=== PATIENT | female | born 1935 | race African-American/Black ===

== ENCOUNTER 2023-01-29 14:25 | Inpatient (IN) | payer MEDICARE, OTHER ==
[~2023-01-29] VITALS: Ht 162.6 cm; Wt 47.2 kg
[2023-01-29 15:14] LABS: BASOPHILS % (AUTO) 0.6 % (0.0-2.0); EOSINOPHILS % (AUTO) 0.2 % (0.0-7.0); HEMATOCRIT 34.1 % (31.2-41.9); HEMOGLOBIN 11.2 g/dL (10.9-14.3); LYMPHOCYTES # (AUTO) 0.9 K/uL (0.8-4.8); LYMPHOCYTES % (AUTO) 10.8 % (20.5-51.5); MEAN CORPUSCULAR HEMOGLOBIN 30.3 uug (24.7-32.8); MEAN CORPUSCULAR HGB CONC 33 g/dL (32.3-35.6); MEAN CORPUSCULAR VOLUME 91.8 fL (75.5-95.3); MONOCYTES % (AUTO) 11.9 % (0.0-11.0); NEUTROPHILS # (AUTO) 6.6 K/uL (1.8-8.9); NEUTROPHILS % (AUTO) 76.5 % (38.5-71.5); PLATELET COUNT (AUTO) 405 K/uL (179-408); RED BLOOD CELL COUNT(AUTO) 3.72 MIL/uL (3.63-4.92); RED CELL DISTRIBUTION WIDTH 13.2 % (12.3-17.7); WHITE BLOOD COUNT (AUTO) 8.6 K/uL (3.8-11.8)
[2023-01-29] MEDS ORDERED: CLINDAMYCIN (15:25)
[2023-01-29] MEDS ORDERED: PLAVIX (15:25)
[2023-01-29] MEDS ORDERED: ZOFRAN (15:25)
[2023-01-29] MEDS ORDERED: MECLIZINE (15:25)
[2023-01-29] MEDS ORDERED: BENAZEPRIL (15:25)
[2023-01-29 15:27] LABS: CALCIUM 9.6 mg/dL (8.5-10.1); CARBON DIOXIDE 28 mmol/L (21-32); CHLORIDE 93 mmol/L (98-107); CREATININE 0.7 mg/dL (0.6-1.3); GLUCOSE 142 mg/dL (74-106); POTASSIUM 3.8 mmol/L (3.5-5.1); SODIUM SERUM 131 mmol/L (136-145); UREA NITROGEN, BLOOD 14 mg/dL (7-18)
[2023-01-29 15:29] LABS: DIFFERENTIAL COMMENT 1
[2023-01-29 15:36] LABS: ALANINE AMINOTRANSFERASE 36 U/L (14-59); ALKALINE PHOSPHATASE 120 U/L (50-136); ASPARTATE AMINOTRANSFERASE 30 U/L (15-37); BILIRUBIN,DIRECT 0.1 mg/dL (0.0-0.2); BILIRUBIN,TOTAL 0.4 mg/dL (0.2-1.0); TOTAL PROTEIN, SERUM 7.4 g/dL (6.4-8.2)
[2023-01-29 15:41] LABS: THYROID STIMULATING HORMONE 1.631 mIU/mL (0.358-3.740)
[2023-01-29 16:18] LABS: *OCCULT BLOOD STOOL NEGATIVE (NEGATIVE)
[2023-01-29 17:38] LABS: *BILIRUBIN,URIN NEGATIVE (NEGATIVE); *BLOOD, URINE NEGATIVE (NEGATIVE); *CLARITY,URINE CLEAR (CLEAR); *COLOR,URINE YELLOW (YELLOW); *KETONES,URINE NEGATIVE (NEGATIVE); *PROTEIN,URINE 1+ (NEGATIVE); LEUKOCYTE ESTERASE ,URINE NEGATIVE (NEGATIVE); NITRITE, URINE NEGATIVE (NEGATIVE); UGLUCOSE NEGATIVE (NEGATIVE)
[2023-01-29] MEDS ORDERED: MORPHINE SULFATE 2 MG/1 ML DISP.SYRIN IV PRN (18:30)
[2023-01-29] MEDS ORDERED: ONDANSETRON 4 MG/2 ML VIAL IV PRN (18:30)
[2023-01-29] MEDS ORDERED: ACETAMINOPHEN 325 MG TABLET PO PRN (18:30)
[2023-01-29 20:31] VITALS: BP 173/72; TEMP 98.2; O2SAT 97
[2023-01-29] MEDS: ENOXAPARIN SODIUM 40 MG/0.4 ML DISP.SYRIN SQ SCH (20:42)
[2023-01-29] MEDS: REMEDY ESSENTIAL ZINC PASTE 113 GM TOP SCH (20:43)
[2023-01-29 23:20] LABS: BACTERIA,URINE FEW /HPF (NONE SEEN); RBC,URINE 0-3 /HPF (0-3); SQUAMOUS EPITHELIAL CELL,UR FEW /HPF (NONE SEEN); URINE AMORPHOUS URATE MODERATE /HPF; WBC,URINE NONE SEEN /HPF (0-3)
[2023-01-30 00:32] VITALS: BP 162/81; TEMP 98.1; O2SAT 99
[2023-01-30] MEDS: ENALAPRILAT DIHYDRATE 1.25 MG/1 ML VIAL IV PRN (06:01)
[2023-01-30 06:32] VITALS: BP 156/84
[2023-01-30 07:21] LABS: BASOPHILS % (AUTO) 0.3 % (0.0-2.0); EOSINOPHILS % (AUTO) 0.2 % (0.0-7.0); HEMOGLOBIN 11.3 g/dL (10.9-14.3); LYMPHOCYTES % (AUTO) 10.8 % (20.5-51.5); MEAN CORPUSCULAR HEMOGLOBIN 31.1 uug (24.7-32.8); MEAN CORPUSCULAR HGB CONC 34 g/dL (32.3-35.6); MEAN CORPUSCULAR VOLUME 90.6 fL (75.5-95.3); MONOCYTES % (AUTO) 10.6 % (0.0-11.0); NEUTROPHILS # (AUTO) 7.4 K/uL (1.8-8.9); NEUTROPHILS % (AUTO) 78.1 % (38.5-71.5); PLATELET COUNT (AUTO) 423 K/uL (179-408); RED BLOOD CELL COUNT(AUTO) 3.64 MIL/uL (3.63-4.92); RED CELL DISTRIBUTION WIDTH 13.2 % (12.3-17.7); WHITE BLOOD COUNT (AUTO) 9.5 K/uL (3.8-11.8)
[2023-01-30 07:39] LABS: DIFFERENTIAL COMMENT 1
[2023-01-30 08:17] LABS: ALANINE AMINOTRANSFERASE 61 U/L (14-59); ALBUMIN 3.1 g/dL (3.4-5.0); ALKALINE PHOSPHATASE 129 U/L (50-136); ASPARTATE AMINOTRANSFERASE 51 U/L (15-37); BILIRUBIN,TOTAL 0.5 mg/dL (0.2-1.0); CALCIUM 9.6 mg/dL (8.5-10.1); CARBON DIOXIDE 28 mmol/L (21-32); CHLORIDE 95 mmol/L (98-107); CHOLESTEROL 186 mg/dL (<200); CREATININE 0.7 mg/dL (0.6-1.3); FERRITIN 1544 ng/mL (8-252); GLUCOSE 109 mg/dL (74-106); HDL CHOLESTEROL 63 mg/dL (40-60); MAGNESIUM 2.1 mg/dL (1.8-2.4); POTASSIUM 3.4 mmol/L (3.5-5.1); SODIUM SERUM 132 mmol/L (136-145); TOTAL PROTEIN, SERUM 7.4 g/dL (6.4-8.2); TRIGLYCERIDES 97 MG/DL (30-150); UREA NITROGEN, BLOOD 13 mg/dL (7-18)
[2023-01-30] MEDS: CHOLECALCIFEROL 1,000 UNIT TABLET PO SCH (08:50)
[2023-01-30] MEDS: PANTOPRAZOLE SODIUM 40 MG VIAL IV SCH (08:50)
[2023-01-30] MEDS: ASCORBIC ACID 500 MG TABLET PO SCH (08:51)
[2023-01-30] MEDS: REMEDY ESSENTIAL ZINC PASTE 113 GM TOP SCH ×2 (08:51→21:13)
[2023-01-30] MEDS ORDERED: POTASSIUM CHLORIDE 10 MEQ TAB.PRT.SR PO SCH (11:00)
[2023-01-30 12:00] VITALS: BP 165/77; TEMP 98.1; O2SAT 100
[2023-01-30] MEDS ORDERED: BENAZEPRIL HCL 10 MG TABLET PO SCH (12:00)
[2023-01-30 13:47] LABS: THYROID STIMULATING HORMONE 1.433 mIU/mL (0.358-3.740)
[2023-01-30 15:52] LABS: HIV-1 p24 ANTIGEN NON REACTIVE (NONREACTIVE); HIV-1/2 ANTIBODY NON REACTIVE (NONREACTIVE)
[2023-01-30 16:00] VITALS: BP 156/82; TEMP 98; O2SAT 99
[2023-01-30] MEDS ORDERED: REMDESIVIR (CHARGED) 200 MG in IV NORMAL SALINE 210 ML IV ONE (16:00)
[2023-01-30 20:45] VITALS: BP 128/63; TEMP 99.1; O2SAT 98
[2023-01-30] MEDS: METOPROLOL TARTRATE 25 MG TABLET PO SCH (21:12)
[2023-01-30] MEDS: ENOXAPARIN SODIUM 40 MG/0.4 ML DISP.SYRIN SQ SCH (21:13)
[2023-01-31 00:30] VITALS: BP 156/73; TEMP 100.6; O2SAT 97
[2023-01-31] MEDS: ENALAPRILAT DIHYDRATE 1.25 MG/1 ML VIAL IV PRN (04:00)
[2023-01-31 04:12] VITALS: BP 152/60; TEMP 99.5; O2SAT 99
[2023-01-31] MEDS: METOPROLOL TARTRATE 25 MG TABLET PO SCH ×2 (06:48→21:22)
[2023-01-31 07:28] LABS: BASOPHILS % (AUTO) 0.3 % (0.0-2.0); EOSINOPHILS % (AUTO) 0.2 % (0.0-7.0); HEMATOCRIT 29.1 % (31.2-41.9); HEMOGLOBIN 9.9 g/dL (10.9-14.3); LYMPHOCYTES # (AUTO) 1.2 K/uL (0.8-4.8); MEAN CORPUSCULAR HEMOGLOBIN 30.9 uug (24.7-32.8); MEAN CORPUSCULAR HGB CONC 34 g/dL (32.3-35.6); MEAN CORPUSCULAR VOLUME 90.6 fL (75.5-95.3); MONOCYTES # (AUTO) 1.2 K/uL (0.1-1.30); MONOCYTES % (AUTO) 11.5 % (0.0-11.0); NEUTROPHILS # (AUTO) 8.1 K/uL (1.8-8.9); PLATELET COUNT (AUTO) 406 K/uL (179-408); RED BLOOD CELL COUNT(AUTO) 3.21 MIL/uL (3.63-4.92); RED CELL DISTRIBUTION WIDTH 13.2 % (12.3-17.7); WHITE BLOOD COUNT (AUTO) 10.5 K/uL (3.8-11.8)
[2023-01-31 07:38] LABS: DIFFERENTIAL COMMENT 1
[2023-01-31 07:42] LABS: CALCIUM 9.2 mg/dL (8.5-10.1); CARBON DIOXIDE 27 mmol/L (21-32); CHLORIDE 94 mmol/L (98-107); CREATININE 0.7 mg/dL (0.6-1.3); GLUCOSE 109 mg/dL (74-106); PHOSPHOROUS 2.8 mg/dL (2.5-4.9); POTASSIUM 3.4 mmol/L (3.5-5.1); SODIUM SERUM 129 mmol/L (136-145); UREA NITROGEN, BLOOD 15 mg/dL (7-18)
[2023-01-31] MEDS: PANTOPRAZOLE SODIUM 40 MG VIAL IV SCH (09:07)
[2023-01-31] MEDS: ASCORBIC ACID 500 MG TABLET PO SCH (09:07)
[2023-01-31] MEDS: CHOLECALCIFEROL 1,000 UNIT TABLET PO SCH (09:07)
[2023-01-31] MEDS: REMEDY ESSENTIAL ZINC PASTE 113 GM TOP SCH ×2 (09:08→21:29)
[2023-01-31] MEDS ORDERED: BENAZEPRIL HCL 10 MG TABLET PO ONE (09:45)
[2023-01-31] MEDS ORDERED: BENA20TA9 PO (10:17)
[2023-01-31] MEDS ORDERED: CLOP75TA15 PO (10:17)
[2023-01-31] MEDS ORDERED: MECL-159 PO (10:17)
[2023-01-31] MEDS ORDERED: ONDA4TAB5 PO (10:17)
[2023-01-31] MEDS ORDERED: POTASSIUM CHLORIDE 20 MEQ TAB.PRT.SR PO ONE (11:00)
[2023-01-31 11:35] VITALS: BP 157/75; TEMP 98.4; O2SAT 96
[2023-01-31] MEDS: REMDESIVIR (CHARGED) 100 MG in IV NORMAL SALINE 100 ML IV SCH (16:05)
[2023-01-31] MEDS: ENSURE ENLIVE (VAN) 240 ML LIQUID PO SCH (16:05)
[2023-01-31 16:30] VITALS: BP 136/70; O2SAT 99
[2023-01-31 18:03] VITALS: BP 147/62; O2SAT 100
[2023-01-31 21:21] VITALS: BP 136/60; TEMP 99; O2SAT 92
[2023-01-31] MEDS: ENOXAPARIN SODIUM 40 MG/0.4 ML DISP.SYRIN SQ SCH (21:22)
[2023-02-01 00:51] VITALS: BP 120/60; TEMP 99; O2SAT 89
[2023-02-01] MEDS: PANTOPRAZOLE SODIUM 40 MG TABLET.DR PO SCH (06:23)
[2023-02-01 06:45] LABS: BASOPHILS # (AUTO) 0.1 K/UL (0.0-0.2); BASOPHILS % (AUTO) 0.6 % (0.0-2.0); EOSINOPHILS # (AUTO) 0.1 K/uL (0.0-0.7); EOSINOPHILS % (AUTO) 0.6 % (0.0-7.0); HEMATOCRIT 30.2 % (31.2-41.9); HEMOGLOBIN 10.1 g/dL (10.9-14.3); LYMPHOCYTES # (AUTO) 1.2 K/uL (0.8-4.8); LYMPHOCYTES % (AUTO) 14.3 % (20.5-51.5); MEAN CORPUSCULAR HEMOGLOBIN 30.9 uug (24.7-32.8); MEAN CORPUSCULAR HGB CONC 33 g/dL (32.3-35.6); MEAN CORPUSCULAR VOLUME 92.6 fL (75.5-95.3); MONOCYTES # (AUTO) 0.8 K/uL (0.1-1.30); MONOCYTES % (AUTO) 9.3 % (0.0-11.0); NEUTROPHILS # (AUTO) 6.5 K/uL (1.8-8.9); NEUTROPHILS % (AUTO) 75.2 % (38.5-71.5); PLATELET COUNT (AUTO) 430 K/uL (179-408); RED BLOOD CELL COUNT(AUTO) 3.26 MIL/uL (3.63-4.92); RED CELL DISTRIBUTION WIDTH 13.5 % (12.3-17.7); WHITE BLOOD COUNT (AUTO) 8.6 K/uL (3.8-11.8)
[2023-02-01 07:13] LABS: DIFFERENTIAL COMMENT 1
[2023-02-01 07:35] LABS: ALANINE AMINOTRANSFERASE 47 U/L (14-59); ALBUMIN 2.4 g/dL (3.4-5.0); ALKALINE PHOSPHATASE 105 U/L (50-136); ASPARTATE AMINOTRANSFERASE 31 U/L (15-37); BILIRUBIN,DIRECT 0.1 mg/dL (0.0-0.2); BILIRUBIN,TOTAL 0.2 mg/dL (0.2-1.0); CALCIUM 9.3 mg/dL (8.5-10.1); CARBON DIOXIDE 29 mmol/L (21-32); CHLORIDE 98 mmol/L (98-107); CREATININE 0.7 mg/dL (0.6-1.3); FERRITIN 947 ng/mL (8-252); GLUCOSE 99 mg/dL (74-106); MAGNESIUM 2.2 mg/dL (1.8-2.4); PHOSPHOROUS 3.3 mg/dL (2.5-4.9); POTASSIUM 3.7 mmol/L (3.5-5.1); SODIUM SERUM 133 mmol/L (136-145); TOTAL PROTEIN, SERUM 6.2 g/dL (6.4-8.2); UREA NITROGEN, BLOOD 23 mg/dL (7-18)
[2023-02-01] MEDS: ASCORBIC ACID 500 MG TABLET PO SCH (09:16)
[2023-02-01] MEDS: CHOLECALCIFEROL 1,000 UNIT TABLET PO SCH (09:16)
[2023-02-01] MEDS: ENSURE ENLIVE (VAN) 240 ML LIQUID PO SCH ×2 (09:17→15:46)
[2023-02-01] MEDS: BENAZEPRIL HCL 20 MG TABLET PO SCH (09:17)
[2023-02-01] MEDS: REMEDY ESSENTIAL ZINC PASTE 113 GM TOP SCH ×2 (09:17→21:36)
[2023-02-01] MEDS: METOPROLOL TARTRATE 25 MG TABLET PO SCH ×2 (09:18→21:35)
[2023-02-01 11:59] VITALS: BP 108/58; TEMP 98.9; O2SAT 99
[2023-02-01] MEDS: REMDESIVIR (CHARGED) 100 MG in IV NORMAL SALINE 100 ML IV SCH (15:46)
[2023-02-01 16:00] VITALS: BP 88/38; TEMP 97.1; O2SAT 93
[2023-02-01 16:17] VITALS: BP 107/41; TEMP 98.2; O2SAT 96
[2023-02-01 20:19] VITALS: BP 116/60; TEMP 98.8; O2SAT 90
[2023-02-01] MEDS: ENOXAPARIN SODIUM 40 MG/0.4 ML DISP.SYRIN SQ SCH (21:36)
[2023-02-02 05:15] VITALS: BP 120/60; TEMP 99; O2SAT 98
[2023-02-02] MEDS: PANTOPRAZOLE SODIUM 40 MG TABLET.DR PO SCH (06:43)
[2023-02-02 07:05] LABS: BASOPHILS # (AUTO) 0.1 K/UL (0.0-0.2); BASOPHILS % (AUTO) 0.7 % (0.0-2.0); EOSINOPHILS % (AUTO) 0.4 % (0.0-7.0); HEMATOCRIT 28.2 % (31.2-41.9); HEMOGLOBIN 9.6 g/dL (10.9-14.3); LYMPHOCYTES # (AUTO) 1.1 K/uL (0.8-4.8); LYMPHOCYTES % (AUTO) 14.8 % (20.5-51.5); MEAN CORPUSCULAR HEMOGLOBIN 30.9 uug (24.7-32.8); MEAN CORPUSCULAR HGB CONC 34 g/dL (32.3-35.6); MEAN CORPUSCULAR VOLUME 90.5 fL (75.5-95.3); MONOCYTES # (AUTO) 0.7 K/uL (0.1-1.30); NEUTROPHILS # (AUTO) 5.8 K/uL (1.8-8.9); NEUTROPHILS % (AUTO) 75.1 % (38.5-71.5); PLATELET COUNT (AUTO) 404 K/uL (179-408); RED BLOOD CELL COUNT(AUTO) 3.11 MIL/uL (3.63-4.92); RED CELL DISTRIBUTION WIDTH 13.5 % (12.3-17.7); WHITE BLOOD COUNT (AUTO) 7.7 K/uL (3.8-11.8)
[2023-02-02 07:18] LABS: DIFFERENTIAL COMMENT 1
[2023-02-02 07:33] LABS: ALANINE AMINOTRANSFERASE 42 U/L (14-59); ALBUMIN 2.3 g/dL (3.4-5.0); ALKALINE PHOSPHATASE 102 U/L (50-136); ASPARTATE AMINOTRANSFERASE 17 U/L (15-37); BILIRUBIN,DIRECT 0.1 mg/dL (0.0-0.2); BILIRUBIN,TOTAL 0.3 mg/dL (0.2-1.0); CALCIUM 9.3 mg/dL (8.5-10.1); CARBON DIOXIDE 27 mmol/L (21-32); CHLORIDE 98 mmol/L (98-107); CREATININE 0.7 mg/dL (0.6-1.3); GLUCOSE 96 mg/dL (74-106); POTASSIUM 3.9 mmol/L (3.5-5.1); SODIUM SERUM 133 mmol/L (136-145); TOTAL PROTEIN, SERUM 5.9 g/dL (6.4-8.2); UREA NITROGEN, BLOOD 34 mg/dL (7-18)
[2023-02-02] MEDS: ENSURE ENLIVE (VAN) 240 ML LIQUID PO SCH ×2 (08:12→17:04)
[2023-02-02] MEDS: CHOLECALCIFEROL 1,000 UNIT TABLET PO SCH (09:10)
[2023-02-02] MEDS: ASCORBIC ACID 500 MG TABLET PO SCH (09:11)
[2023-02-02] MEDS: REMEDY ESSENTIAL ZINC PASTE 113 GM TOP SCH ×2 (09:11→20:36)
[2023-02-02] MEDS: BENAZEPRIL HCL 20 MG TABLET PO SCH (09:39)
[2023-02-02] MEDS: METOPROLOL TARTRATE 25 MG TABLET PO SCH ×2 (09:40→20:35)
[2023-02-02 11:41] VITALS: BP 129/47; TEMP 98.3; O2SAT 98
[2023-02-02 16:00] VITALS: BP 102/54; TEMP 98.4; O2SAT 98
[2023-02-02 20:00] VITALS: BP 107/55; TEMP 98.2; O2SAT 96
[2023-02-02] MEDS: ENOXAPARIN SODIUM 40 MG/0.4 ML DISP.SYRIN SQ SCH (20:06)
[2023-02-03 06:13] VITALS: BP 128/62; TEMP 99
[2023-02-03] MEDS: PANTOPRAZOLE SODIUM 40 MG TABLET.DR PO SCH (06:20)
[2023-02-03 06:54] LABS: ALBUMIN 2.4 g/dL (3.4-5.0); BASOPHILS % (AUTO) 0.5 % (0.0-2.0); BILIRUBIN,DIRECT 0.1 mg/dL (0.0-0.2); BILIRUBIN,TOTAL 0.3 mg/dL (0.2-1.0); CREATININE 0.8 mg/dL (0.6-1.3); DIFFERENTIAL COMMENT 0; EOSINOPHILS % (AUTO) 0.3 % (0.0-7.0); HEMATOCRIT 28.4 % (31.2-41.9); HEMOGLOBIN 9.6 g/dL (10.9-14.3); LYMPHOCYTES # (AUTO) 1.1 K/uL (0.8-4.8); LYMPHOCYTES % (AUTO) 11.8 % (20.5-51.5); MEAN CORPUSCULAR HEMOGLOBIN 30.8 uug (24.7-32.8); MEAN CORPUSCULAR HGB CONC 34 g/dL (32.3-35.6); MONOCYTES # (AUTO) 0.7 K/uL (0.1-1.30); MONOCYTES % (AUTO) 8.3 % (0.0-11.0); NEUTROPHILS # (AUTO) 7.1 K/uL (1.8-8.9); NEUTROPHILS % (AUTO) 79.1 % (38.5-71.5); PLATELET COUNT (AUTO) 426 K/uL (179-408); POTASSIUM 4.4 mmol/L (3.5-5.1); RED BLOOD CELL COUNT(AUTO) 3.12 MIL/uL (3.63-4.92); RED CELL DISTRIBUTION WIDTH 13.5 % (12.3-17.7)
[2023-02-03 07:07] LABS: CALCIUM 9.3 mg/dL (8.5-10.1)
[2023-02-03] MEDS: ENSURE ENLIVE (VAN) 240 ML LIQUID PO SCH ×2 (08:07→17:08)
[2023-02-03] MEDS: METOPROLOL TARTRATE 25 MG TABLET PO SCH ×2 (08:40→21:06)
[2023-02-03] MEDS: BENAZEPRIL HCL 20 MG TABLET PO SCH (08:40)
[2023-02-03] MEDS: REMEDY ESSENTIAL ZINC PASTE 113 GM TOP SCH ×2 (08:40→21:07)
[2023-02-03] MEDS: CHOLECALCIFEROL 1,000 UNIT TABLET PO SCH (08:40)
[2023-02-03] MEDS: ASCORBIC ACID 500 MG TABLET PO SCH (08:40)
[2023-02-03 11:14] VITALS: BP 139/62; TEMP 98.6; O2SAT 99
[2023-02-03 15:13] VITALS: BP 137/72; TEMP 97.7; O2SAT 99
[2023-02-03 20:00] VITALS: BP 117/54; TEMP 97.3; O2SAT 99
[2023-02-03] MEDS: ENOXAPARIN SODIUM 40 MG/0.4 ML DISP.SYRIN SQ SCH (21:10)
[2023-02-04] VITALS: BP 102/57; TEMP 98.3; O2SAT 96
[2023-02-04 04:00] VITALS: BP 150/70; TEMP 97.9; O2SAT 98
[2023-02-04] MEDS: PANTOPRAZOLE SODIUM 40 MG TABLET.DR PO SCH (06:04)
[2023-02-04] MEDS: BENAZEPRIL HCL 20 MG TABLET PO SCH (07:50)
[2023-02-04] MEDS: METOPROLOL TARTRATE 25 MG TABLET PO SCH (07:51)
[2023-02-04] MEDS: CHOLECALCIFEROL 1,000 UNIT TABLET PO SCH (07:51)
[2023-02-04] MEDS: ASCORBIC ACID 500 MG TABLET PO SCH (07:51)
[2023-02-04] MEDS: REMEDY ESSENTIAL ZINC PASTE 113 GM TOP SCH (08:45)
[2023-02-04] MEDS: ENSURE ENLIVE (VAN) 240 ML LIQUID PO SCH (08:45)
[2023-02-04 12:00] VITALS: BP 146/65; TEMP 97.7; O2SAT 98
[2023-02-04 16:03] VITALS: BP 143/67; TEMP 97.7; O2SAT 98
== END 2023-02-04 16:50 | disposition home health service (06) | DRG 177 ==
LOC: ER 14:30 → TELE3 17:34
PROVIDERS: ADMIT Internal Medicine; ATTEND Internal Medicine
PROC: XW033E5 Introduction of Remdesivir Anti-infective into Peripheral Vein, Percutaneous Approach, New Technology Group 5 (ICD-10-PCS; principal; 2023-01-30)
DX: U07.1 COVID-19 (principal); G92.8 Other toxic encephalopathy; I50.32 Chronic diastolic (congestive) heart failure; I13.0 Hypertensive heart and chronic kidney disease with heart failure and stage 1 through stage 4 chronic kidney disease, or unspecified chronic kidney disease; D68.59 Other primary thrombophilia; E87.1 Hypo-osmolality and hyponatremia; Z68.1 Body mass index [BMI] 19.9 or less, adult; N18.9 Chronic kidney disease, unspecified; R62.7 Adult failure to thrive; D64.9 Anemia, unspecified; Z74.09 Other reduced mobility; A49.9 Bacterial infection, unspecified; E87.6 Hypokalemia; Z87.01 Personal history of pneumonia (recurrent); Z88.0 Allergy status to penicillin; Z79.899 Other long term (current) drug therapy; Z79.02 Long term (current) use of antithrombotics/antiplatelets; F03.90 Unspecified dementia, unspecified severity, without behavioral disturbance, psychotic disturbance, mood disturbance, and anxiety; R74.01 Elevation of levels of liver transaminase levels
CPT/HCPCS: 36415; 70450; 71045; 83605; 83735; 84100; 84443; 84484; 85025; 85610; 85730; 86140; 86803; 87040; 87806; 93005; A4663; A6213; C1758; C9113; G0378; J0248; J1650; J3490